=== PATIENT | female | born 1995 | race Caucasian/White ===

== ENCOUNTER 2016-08-17 15:54 | Emergency (ER) | payer BC ==
[~2016-08-17] VITALS: Ht 167.6 cm; Wt 120.0 kg
[2016-08-17 15:55] VITALS: BP 140/100; PULSE 112; RESP 20; TEMP 97.8; O2SAT 97
[2016-08-17] MEDS ORDERED: SODIUM CHLOR 0.9% 1000 ML INJ 1,000 ML IV SCH (16:08)
[2016-08-17] MEDS ORDERED: SODIUM CHLORIDE 0.9% FLUSH 10 ML FLUSH IV FLUSH PRN (16:15)
[2016-08-17] MEDS ORDERED: ONDANSETRON HCL 4 MG/2 ML VIAL IVP ONE (16:15)
[2016-08-17] MEDS ORDERED: MORPHINE SULFATE 8 MG/ML INJ IV PUSH ONE (16:15)
--- NOTE | 2016-08-17 16:25 | PD ---
HPI Chief Complaint: GI Complaint Time Seen by Provider: 16:02 Travel History International Travel<30 days: No Contact w/Intl Traveler<30days: No Traveled to known affect area: No History of Present Illness HPI 21 yo F c/o RUQ abdominal pain for 1 month approximately. Pain is constant and now severe she states. Nausea and vomiting are reported. Fever is reported as pt states she feels "hot." OTC Prilosec has not been helpful. RUQ pain radiates to the back. 2/2 pain pt was unable to sleep last night. Quality is sharp and stabbing. Pt has also had diarrhea was a few weeks. Appetite has been decreased. No vb/vd. PFSH Past Medical History ?: Not Social History Tobacco Use: No Allergies-Medications (Allergen,Severity, Reaction): Coded Allergies: Topamax (Verified Allergy, Intermediate, pins and needles to her body, ) Review of Systems Except as stated in HPI: all other systems reviewed are Neg General / Constitutional: Positive: Fever Gastrointestinal: Positive: Nausea, Vomiting, Diarrhea, Abdominal Pain Physical Exam Narrative GENERAL: 21 yo F, WNWD, no obvious distress SKIN: Warm and dry. HEAD: Atraumatic. Normocephalic. EYES: Pupils equal and round. No scleral icterus. No injection or drainage. ENT: No nasal bleeding or discharge. Mucous membranes pink and moist. NECK: Trachea midline. No JVD. CARDIOVASCULAR: Regular rate and rhythm. RESPIRATORY: No accessory muscle use. Clear to auscultation. Breath sounds equal bilaterally. GASTROINTESTINAL: Soft. TTP RUQ. Tenderness to percussion right flank. MUSCULOSKELETAL: Extremities without clubbing, cyanosis, or edema. No obvious deformities. NEUROLOGICAL: Awake and alert. No obvious cranial nerve deficits. Motor grossly within normal limits. Five out of 5 muscle strength in the arms and legs. Normal speech. PSYCHIATRIC: Appropriate mood and affect; insight and judgment normal. Data Data Last Documented VS Vital Signs Date Time Temp Pulse Resp B/P Pulse Ox O2 Delivery O2 Flow Rate FiO2 08/17/16 16:37 18 98 Room Air 08/17/16 15:55 97.8 112 140/100 VS reviewed Orders Complete Blood Count With Diff (08/17/16 16:08) Comprehensive Metabolic Panel (08/17/16 16:08) Lipase (08/17/16 16:08) Urinalysis - C+S If Indicated (08/17/16 16:08) Ct Abd/Pel W/O Iv Contrast (08/17/16 16:08) Iv Access Insert/Monitor (08/17/16 16:08) Ecg Monitoring (08/17/16 16:08) Oximetry (08/17/16 16:08) Ondansetron Inj (Zofran Inj) (08/17/16 16:15) Sodium Chlor 0.9% 1000 Ml Inj (Ns 1000 M (08/17/16 16:08) Sodium Chloride 0.9% Flush (Ns Flush) (08/17/16 16:15) Morphine Inj (Morphine Inj) (08/17/16 16:15) Ed Urine Pregnancytest Poc (08/17/16 16:08) MDM Medical Decision Making Medical Screen Exam Complete: Yes Emergency Medical Condition: Yes Medical Record Reviewed: Yes Differential Diagnosis Constipation, Gastritis, Acute Cholecystitis, Biliary Colic, Pancreatitis, KRUGER , Hepatitis, Bowel Obstruction, Cystitis, Mesenteric Ischemia, AAA, Appendicitis , Renal Stone/Hydronephrosis, GERD, perforated viscous Narrative Course There is concern for hepatobiliary disease or possibly kidney disease. Right lung base disease is a consideration as well. CT scan as well as CBC, compress panel, lipase and urinalysis are pending at time of dictation. Care turned over to oncoming provider at 17:00. Mehdi Lance MD August 17, 2016 16:25
[2016-08-17 16:37] VITALS: RESP 18; O2SAT 98
[2016-08-17 17:15] LABS: BASOPHIL # 0.1 TH/MM3 (0-0.2); BASOPHIL % 0.5 % (0.0-2.0); EOSINOPHIL # 0.1 TH/MM3 (0-0.4); EOSINOPHIL % 1.1 % (0.0-4.0); HEMO FLAGS DIFF FINAL; LYMPH % 21.6 % (9.0-44.0); LYMPHOCYTE # 2.7 TH/MM3 (1.0-4.8); MEAN CELL VOLUME 78.7 FL (80.0-100.0); MEAN CORPUSCULAR HGB CONC 34.3 % (32.0-36.0); MONO % 5.4 % (0.0-8.0); NEUT % 71.4 % (16.0-70.0); PLATELET COUNT 358 TH/MM3 (150-450); RED BLOOD COUNT 5.08 MIL/MM3 (4.00-5.30); RED CELL DISTRIBUTION WIDTH 15.7 % (11.6-17.2); WHITE BLOOD COUNT 12.5 TH/MM3 (4.0-11.0)
[2016-08-17 17:31] LABS: ALKALINE PHOSPHATASE 128 U/L (45-117); TOTAL BILIRUBIN ADULT 0.4 MG/DL (0.2-1.0)
[2016-08-17 17:35] LABS: ALT (GPT) 53 U/L (10-53); ANION GAP 10 MEQ/L (5-15); AST (GOT) 47 U/L (15-37); BICARBONATE 23.9 MEQ/L (21.0-32.0); BLOOD UREA NITROGEN 8 MG/DL (7-18); CHLORIDE 104 MEQ/L (98-107); GLOMERULAR FILTRATION RATE 97 ML/MIN (>89); POTASSIUM 3.7 MEQ/L (3.5-5.1); SODIUM (NA) 138 MEQ/L (136-145)
--- NOTE | 2016-08-17 17:57 | RADRPT ---
EXAM DATE/TIME: 08/17/2016 17:28 [facility] COMPARISON: No previous studies available for comparison. INDICATIONS : Upper right abdominal pain. ORAL CONTRAST: No oral contrast ingested. RADIATION DOSE: 24.95 CTDIvol (mGy) MEDICAL HISTORY : None SURGICAL HISTORY : None. ENCOUNTER: Initial ACUITY: 1 day PAIN SCALE: 6/10 LOCATION: Right upper quadrant TECHNIQUE: Volumetric scanning of the abdomen and pelvis was performed. Using automated exposure control and ad justment of the mA and/or kV according to patient size, radiation dose was kept as low as reasonably achievable to obtain optimal diagnostic quality images. FINDINGS: LOWER LUNGS: The visualized lower lungs are clear. LIVER: Mildly enlarged with diffusely decreased attenuation consistent with steatosis. No evidence of focal mass or biliary ductal dilatation. Gallbladder surgically absent. SPLEEN: Normal size without lesion. Small adjacent splenule PANCREAS: Within normal limits. KIDNEYS: Normal in size and shape. There is no mass, stone, or hydronephrosis. ADRENAL GLANDS: Within normal limits. VASCULAR: There is no aortic aneurysm. BOWEL/MESENTERY: The stomach, small bowel, and colon demonstrate no acute abnormality. There is no free intraperitone al air or fluid. ABDOMINAL WALL: Within normal limits. RETROPERITONEUM: There is no lymphadenopathy. BLADDER: No wall thickening or mass. REPRODUCTIVE: Within normal limits. INGUINAL: There is no lymphadenopathy or hernia. MUSCULOSKELETAL: Within normal limits for patient age. CONCLUSION: Hepatomegaly and steatosis. No definite acute CT findings in the abdomen or pelvis. Figueroa Jade MD on August 17, 2016 at 17:51 Board Certified Radiologist. This report was verified electronically.
[2016-08-17 19:10] VITALS: BP 137/58; PULSE 74; RESP 18; O2SAT 98
[2016-08-17 20:08] LABS: BACTERIA, URINE OCC /hpf; BLOOD, URINE NEG (NEG); COMMENT (UR) CULT NOT INDICATED; CULTURE IF INDICATED CULT NOT INDICATED; GLUCOSE,URINE NEG (NEG); KETONE, URINE NEG (NEG); MUCUS URINE FEW /lpf (OCC); NITRITE,URINE NEG (NEG); SQUAMOUS EPITHELIAL CELL URINE 4 /hpf (0-5); URINE COLOR YELLOW (YELLW/STRAW)
[2016-08-17] MEDS ORDERED: TRAM50TA PO (20:21)
[2016-08-17] MEDS ORDERED: ZOFR4TAB3 SL (20:21)
--- NOTE | 2016-08-17 20:21 | PD ---
Physical Exam Narrative Patient signed out to me by Dr. Lance to follow-up CAT scan and labs and disposition. Please see his documentation for complete history and physical details. Briefly, patient has been having right-sided abdominal pain for 2 weeks. She says it has been becoming worse so she came in. Exam shows tenderness to the right upper quadrant. Data Data Last Documented VS Vital Signs Date Time Temp Pulse Resp B/P Pulse Ox O2 Delivery O2 Flow Rate FiO2 08/17/16 19:10 74 18 137/58 98 Room Air 08/17/16 15:55 97.8 Orders Complete Blood Count With Diff (08/17/16 16:08) Comprehensive Metabolic Panel (08/17/16 16:08) Lipase (08/17/16 16:08) Urinalysis - C+S If Indicated (08/17/16 16:08) Ct Abd/Pel W/O Iv Contrast (08/17/16 16:08) Iv Access Insert/Monitor (08/17/16 16:08) Ecg Monitoring (08/17/16 16:08) Oximetry (08/17/16 16:08) Ondansetron Inj (Zofran Inj) (08/17/16 16:15) Sodium Chlor 0.9% 1000 Ml Inj (Ns 1000 M (08/17/16 16:08) Sodium Chloride 0.9% Flush (Ns Flush) (08/17/16 16:15) Morphine Inj (Morphine Inj) (08/17/16 16:15) Ed Urine Pregnancytest Poc (08/17/16 16:08) Labs Laboratory Tests Test 08/17/16 08/17/16 16:20 19:45 White Blood Count 12.5 TH/MM3 Red Blood Count 5.08 MIL/MM3 Hemoglobin 13.7 GM/DL Hematocrit 40.0 % Mean Corpuscular Volume 78.7 FL Mean Corpuscular Hemoglobin 27.0 PG Mean Corpuscular Hemoglobin 34.3 % Concent Red Cell Distribution Width 15.7 % Platelet Count 358 TH/MM3 Mean Platelet Volume 8.3 FL Neutrophils (%) (Auto) 71.4 % Lymphocytes (%) (Auto) 21.6 % Monocytes (%) (Auto) 5.4 % Eosinophils (%) (Auto) 1.1 % Basophils (%) (Auto) 0.5 % Neutrophils # (Auto) 9.0 TH/MM3 Lymphocytes # (Auto) 2.7 TH/MM3 Monocytes # (Auto) 0.7 TH/MM3 Eosinophils # (Auto) 0.1 TH/MM3 Basophils # (Auto) 0.1 TH/MM3 CBC Comment DIFF FINAL Differential Comment Sodium Level 138 MEQ/L Potassium Level 3.7 MEQ/L Chloride Level 104 MEQ/L Carbon Dioxide Level 23.9 MEQ/L Anion Gap 10 MEQ/L Blood Urea Nitrogen 8 MG/DL Creatinine 0.74 MG/DL Estimat Glomerular Filtration 97 ML/MIN Rate Random Glucose 92 MG/DL Calcium Level 9.3 MG/DL Total Bilirubin 0.4 MG/DL Aspartate Amino Transf 47 U/L (AST/SGOT) Alanine Aminotransferase 53 U/L (ALT/SGPT) Alkaline Phosphatase 128 U/L Total Protein 9.2 GM/DL Albumin 3.9 GM/DL Lipase 174 U/L Urine Color YELLOW Urine Turbidity HAZY Urine pH 6.0 Urine Specific [place] 1.014 Urine Protein NEG mg/dL Urine Glucose (UA) NEG mg/dL Urine Ketones NEG mg/dL Urine Occult Blood NEG Urine Nitrite NEG Urine Bilirubin NEG Urine Urobilinogen LESS THAN 2.0 MG/DL Urine Leukocyte Esterase SMALL Urine RBC LESS THAN 1 /hpf Urine WBC 3 /hpf Urine Squamous Epithelial 4 /hpf Cells Urine Bacteria OCC /hpf Urine Mucus FEW /lpf Microscopic Urinalysis Comment CULT NOT INDICATED MDM Supervised Visit with ADRIANA: No Narrative Course CT of the abdomen and pelvis performed shows fatty liver, no other abnormalities. Patient was given pain medicine by Dr. Lance and reports feeling better. Labs show a mild elevation in white count of 12.5. There is also mild elevation in AST to 47 and alkaline phosphatase to 128. Patient advised she should follow-up with gastroenterology for further testing. Discharged with Zofran and some pain medicine. Advised to return to the ED as needed for any worsening symptoms. Diagnosis Primary Impression: Abdominal pain Qualified Code: R10.11 - Right upper quadrant abdominal pain Patient Instructions: Abdominal Pain (ED), General Instructions, Non-Alcoholic Fatty Liver Disease (ED) Additional Instruction: Follow up with gastroenterology. Take pain medication as needed. Return to the ED as needed for any worsening symptoms. Scripts Tramadol 50 Mg Tab50 Mg PO Q6H PRN (PAIN) #12 TAB Ref 0 Prov:Emily Medina MD 08/17/16 Ondansetron Odt (Zofran Odt)4 Mg Tab4 Mg SL Q6HR PRN (Nausea/Vomiting) #10 TAB Ref 0 Prov:Emily Medina MD 08/17/16 Disposition: 01 DISCHARGE HOME Condition: Stable Emily Medina MD August 17, 2016 20:21
== END 2016-08-17 20:40 | disposition home or self-care (01) ==
LOC: NEPD 15:54
DX: R10.11 Right upper quadrant pain (principal); R11.2 Nausea with vomiting, unspecified; R50.9 Fever, unspecified; R19.7 Diarrhea, unspecified
CPT/HCPCS: 74176; 80053; 81001; 83690; 84703; 85025; 96361; 96374; 96375; 99285; J2270; J2405; J7030